=== PATIENT | male | born 1980 | race Caucasian/White ===

== ENCOUNTER 2022-05-14 23:16 | Emergency (ER) | payer MEDICAID, OTHER ==
[~2022-05-14] VITALS: Ht 175.3 cm; Wt 101.7 kg
[2022-05-15 01:08] VITALS: BP 139/85
[2022-05-15] MEDS ORDERED: IBUPROFEN 600MG TABLET PO ONE (01:45)
[2022-05-15] MEDS ORDERED: TAM75 MT (03:53)
== END 2022-05-15 04:20 | disposition home or self-care (01) ==
LOC: ER 23:16
DX: J11.1 Influenza due to unidentified influenza virus with other respiratory manifestations (principal); R05.9 Cough, unspecified; M79.18 Myalgia, other site; R50.9 Fever, unspecified; Z20.822 Contact with and (suspected) exposure to COVID-19
CPT/HCPCS: 71045; 87426; 87804; 99284; C9803